=== PATIENT | female | born 1990 | race African-American/Black ===

== ENCOUNTER 2017-03-11 23:00 | Inpatient (IN) | payer MEDICAID ==
[~2017-03-11] VITALS: Ht 167.6 cm; Wt 69.1 kg
[2017-03-12 04:00] VITALS: BP 113/80
[2017-03-12] MEDS ORDERED: OLANZapine 5 MG RAPDIS TABLET PO PRN (04:15)
[2017-03-12] MEDS ORDERED: LORazepam 1 MG TABLET PO PRN (04:15)
[2017-03-12] MEDS ORDERED: ZOLPIDEM TARTRATE 10 MG TABLET PO PRN (04:15)
[2017-03-12 05:44] VITALS: BP 127/79
[2017-03-12 06:37] VITALS: BP 127/79
[2017-03-12 08:45] LABS: ADD UA MICROSCOPIC YES; APPEARANCE,URINE CLOUDY (CLEAR); GLUCOSE, URINE (UA) NEGATIVE (NEGATIVE); KETONES,URINE NEGATIVE (NEGATIVE); LEUKOCYTE ESTERASE ,URINE SMALL (NEGATIVE); OCCULT BLOOD,URINE NEGATIVE (NEGATIVE); PROTEIN,URINE NEGATIVE (NEGATIVE)
[2017-03-12 08:55] LABS: RBC,URINE 0-2 /HPF (0-2); SQUAMOUS EPITHELIAL CELL,UR Few /LPF (None Seen)
[2017-03-12] MEDS ORDERED: OLAN10TA3 PO (11:13)
[2017-03-12] MEDS: RisperiDONE 2 MG TABLET PO SCH ×2 (14:02→20:22)
[2017-03-12] MEDS: DIVALPROEX SODIUM 500 MG DR TABLET PO SCH ×2 (14:02→20:22)
[2017-03-12 16:04] VITALS: BP 115/80
[2017-03-13 06:24] VITALS: BP 121/83
[2017-03-13 08:30] VITALS: BP 135/74
[2017-03-13] MEDS: RisperiDONE 2 MG TABLET PO SCH ×2 (08:49→20:49)
[2017-03-13] MEDS: DIVALPROEX SODIUM 500 MG DR TABLET PO SCH ×2 (08:49→20:49)
[2017-03-13] MEDS: CIPROFLOXACIN HCL 500 MG TABLET PO SCH ×2 (09:49→17:03)
[2017-03-13] MEDS ORDERED: ACETAMINOPHEN 325 MG TABLET PO PRN (10:00)
[2017-03-13] MEDS ORDERED: IBUPROFEN 400 MG TABLET PO PRN (10:00)
[2017-03-13] MEDS: LORazepam 1 MG TABLET PO PRN (13:35)
[2017-03-13 16:00] VITALS: BP 130/81
[2017-03-14 08:11] LABS: BASOPHILS % (AUTO) 0.3 % (0.0-2.0); EOSINOPHILS % (AUTO) 0.2 % (1.0-6.0); HEMATOCRIT 38.6 % (36-46); HEMOGLOBIN 12.2 g/dL (12.0-16.0); LYMPHOCYTES # (AUTO) 2.2 K/uL (1.0-4.8); LYMPHOCYTES % (AUTO) 37.5 % (22.0-44.0); MEAN CORPUSCULAR HEMOGLOBIN 28.2 pg (26.0-34.0); MEAN CORPUSCULAR HGB CONC 31.7 G/dL (31.0-37.0); MEAN CORPUSCULAR VOLUME 89 fL (80-100); MONOCYTES # (AUTO) 0.7 K/uL (0.1-1.0); MONOCYTES % (AUTO) 11.7 % (2.0-9.0); NEUTROPHILS # (AUTO) 2.9 K/uL (1.8-7.7); NEUTROPHILS % (AUTO) 50.3 % (40.0-70.0); PLATELET COUNT (AUTO) 121 K/uL (150-450); RED BLOOD CELL COUNT(AUTO) 4.33 MIL/uL (4.00-5.20); RED CELL DISTRIBUTION WIDTH 12.8 % (11.5-14.5); WHITE BLOOD COUNT (AUTO) 5.8 K/uL (4.5-11.0)
[2017-03-14 08:15] LABS: HEMOGLOBIN A1C 5.8 % (4.5-6.2)
[2017-03-14] MEDS: RisperiDONE 2 MG TABLET PO SCH ×2 (08:23→20:20)
[2017-03-14] MEDS: CIPROFLOXACIN HCL 500 MG TABLET PO SCH ×2 (08:23→16:21)
[2017-03-14] MEDS: DIVALPROEX SODIUM 500 MG DR TABLET PO SCH ×2 (08:24→20:20)
[2017-03-14] MEDS: LORazepam 1 MG TABLET PO PRN ×2 (08:27→16:21)
[2017-03-14 08:47] LABS: ALANINE AMINOTRANSFERASE 17 U/L (12-78); ALBUMIN 3.5 g/dL (3.4-5.0); ANION GAP 13 mmol/L (8-16); ASPARTATE AMINOTRANSFERASE 12 U/L (15-37); BILIRUBIN,TOTAL 0.2 mg/dL (0.1-1.0); CALCIUM, TOTAL 9.1 mg/dL (8.8-10.5); CARBON DIOXIDE 25 mmol/L (22-29); CHLORIDE 100 mmol/L (98-107); CHOL/HDL RATIO 3.8 (3.9-5.7); CREATININE 0.78 mg/dL (0.60-1.30); GLOMERULAR FILTR. RATE CALC > 60 mL/min (>60); POTASSIUM 3.7 mmol/L (3.5-5.1); SODIUM SERUM 138 mmol/L (136-145); THYROID STIMULATING HORMONE 0.43 uIU/mL (0.36-3.74); TOTAL PROTEIN, SERUM 7.7 g/dL (6.4-8.2); UREA NITROGEN, BLOOD 7 mg/dL (7-18)
[2017-03-14 20:07] VITALS: BP 110/67
[2017-03-15 06:30] VITALS: BP 121/85
[2017-03-15 08:08] VITALS: BP 107/65
[2017-03-15 08:34] LABS: HEPATITIS Bs ANTIGEN SCREEN P Negative (Negative); HEPATITIS C AB SCREEN <0.1 s/co ratio (0.0-0.9)
[2017-03-15] MEDS: DIVALPROEX SODIUM 500 MG DR TABLET PO SCH (08:45)
[2017-03-15] MEDS: CIPROFLOXACIN HCL 500 MG TABLET PO SCH (08:45)
[2017-03-15] MEDS: RisperiDONE 2 MG TABLET PO SCH (08:45)
[2017-03-15] MEDS ORDERED: DIVA500T35 PO (14:05)
[2017-03-15] MEDS ORDERED: RISP2 PO (14:05)
[2017-03-15] MEDS ORDERED: CIPR-278 PO (14:07)
== END 2017-03-15 14:15 | disposition home or self-care (01) | DRG 753 ==
LOC: B2S 03-12 04:22 → B3A 03-12 14:15
DX: F31.5 Bipolar disorder, current episode depressed, severe, with psychotic features (principal); N39.0 Urinary tract infection, site not specified; F10.10 Alcohol abuse, uncomplicated; F19.10 Other psychoactive substance abuse, uncomplicated
CPT/HCPCS: 80074; 80307; 83036; 84443; 86592; 87086

== ENCOUNTER 2019-11-12 12:17 | Inpatient (IN) | payer MEDICAID, OTHER ==
[~2019-11-12] VITALS: Ht 167.6 cm; Wt 85.5 kg
[~2019-11-12 12:17] MED LIST: CIPR-278 PO; DIVA-78 PO; RISP2 PO
[2019-11-12] MEDS ORDERED: OLAN7.5T2 PO (12:54)
[2019-11-12] MEDS ORDERED: ACTIVATED CHARCOAL 50 GM/240 ML SUSPENSION PO ONE (13:00)
[2019-11-12 13:33] LABS: BASOPHILS % (AUTO) 0.8 % (0.0-2.0); EOSINOPHILS % (AUTO) 2.4 % (1.0-6.0); HEMATOCRIT 38.3 % (36-46); HEMOGLOBIN 12.4 g/dL (12.0-16.0); LYMPHOCYTES # (AUTO) 2.8 K/uL (1.0-4.8); LYMPHOCYTES % (AUTO) 41.2 % (22.0-44.0); MEAN CORPUSCULAR HEMOGLOBIN 26.9 pg (26.0-34.0); MEAN CORPUSCULAR HGB CONC 32.4 G/dL (31.0-37.0); MEAN CORPUSCULAR VOLUME 83 fL (80-100); MONOCYTES # (AUTO) 0.6 K/uL (0.1-1.0); MONOCYTES % (AUTO) 8.7 % (2.0-9.0); NEUTROPHILS # (AUTO) 3.2 K/uL (1.8-7.7); NEUTROPHILS % (AUTO) 46.9 % (40.0-70.0); PLATELET COUNT (AUTO) 395 K/uL (150-450); RED BLOOD CELL COUNT(AUTO) 4.61 MIL/uL (4.00-5.20); RED CELL DISTRIBUTION WIDTH 15.7 % (11.5-14.5)
[2019-11-12 13:39] LABS: ANION GAP 14 mmol/L (8-16); CALCIUM, TOTAL 9.6 mg/dL (8.8-10.5); CARBON DIOXIDE 26 mmol/L (22-29); CHLORIDE 98 mmol/L (98-107); CREATININE 0.88 mg/dL (0.60-1.30); GLOMERULAR FILTR. RATE CALC > 60 mL/min (>60); GLUCOSE,RANDOM 93 mg/dL (70-110); POTASSIUM 3.3 mmol/L (3.5-5.1); SALICYLATE 0.7 mg/dL (2.8-20.0); SODIUM SERUM 138 mmol/L (136-145); UREA NITROGEN, BLOOD 7 mg/dL (7-18)
[2019-11-12 13:53] LABS: ALANINE AMINOTRANSFERASE 28 U/L (12-78); ALKALINE PHOSPHATASE 105 U/L (46-116); ASPARTATE AMINOTRANSFERASE 28 U/L (15-37); BILIRUBIN,TOTAL 0.4 mg/dL (0.1-1.0)
[2019-11-12 13:54] LABS: ACETAMINOPHEN < 2 mcg/mL (10-30)
[2019-11-12 14:18] LABS: VALPROIC ACID 462 mcg/mL (50-100)
[2019-11-12 16:14] LABS: AMPHET/METH SCREEN,URINE POSITIVE (NEGATIVE); BARBITURATE SCREEN, URINE NEGATIVE (NEGATIVE); BENZODIAZEPINES SCREEN,URINE NEGATIVE (NEGATIVE); CANNABINOID SCREEN,URINE NEGATIVE (NEGATIVE); COCAINE SCREEN,URINE POSITIVE (NEGATIVE); METHADONE SCREEN, URINE NEGATIVE (NEGATIVE); OPIATE SCREEN,URINE NEGATIVE (NEGATIVE)
[2019-11-12 16:16] LABS: PHENCYCLIDINE SCREEN,URINE NEGATIVE (NEGATIVE)
[2019-11-12] MEDS ORDERED: PEG 3350/NA SULF,BICARB,CL/KCL 4000 ML SOLUTION PO ONE ×3 (17:00→20:15)
[2019-11-12] MEDS ORDERED: ONDANSETRON HCL 4 MG/2 ML VIAL IVP PRN ×2 (17:15→23:00)
[2019-11-12] MEDS ORDERED: ACETAMINOPHEN 325 MG TABLET PO PRN ×2 (17:15→23:00)
[2019-11-12] MEDS ORDERED: ONDANSETRON HCL 4 MG/2 ML VIAL IVP ONE (18:00)
[2019-11-12] MEDS ORDERED: ALBUTEROL SULFATE 2.5 MG/0.5 ML NEB SOLUTION NEB PRN (23:00)
[2019-11-12] MEDS ORDERED: IPRATROPIUM BROMIDE 0.5 MG/2.5 ML NEB SOLUTION NEB PRN (23:00)
[2019-11-12] MEDS ORDERED: POTASSIUM CHL 10 MEQ/WATER 50 ML IV PRN (23:00)
[2019-11-12] MEDS ORDERED: MAGNESIUM SULFATE 2 GM/WATER 50 ML IV PRN (23:00)
[2019-11-12] MEDS ORDERED: ZOLPIDEM TARTRATE 5 MG TABLET PO PRN (23:00)
[2019-11-12] MEDS ORDERED: HYDROCODONE/ACETAMINOPHEN 5-325 MG TABLET PO PRN (23:00)
[2019-11-12] MEDS ORDERED: MAGNESIUM SULFATE 4 GM/WATER 100 ML IV PRN (23:00)
[2019-11-12] MEDS ORDERED: MAGNESIUM HYDROXIDE SUSPENSION 30 ML UDCUP PO PRN (23:00)
[2019-11-12] MEDS ORDERED: LACTULOSE 20 GM/30 ML SOLUTION UDCUP PO ONE (23:00)
[2019-11-12] MEDS ORDERED: BISACODYL 10 MG RECTAL RECTAL SUPPOSITORY PR PRN (23:00)
[2019-11-12] MEDS ORDERED: MORPHINE SULFATE 2 MG/ML SYRINGE IVP PRN (23:00)
[2019-11-12] MEDS: DEXTROSE 5%-0.45% SODIUM CHL 1,000 ML IV SCH (23:04)
[2019-11-12 23:23] LABS: BASOPHILS % (AUTO) 0.9 % (0.0-2.0); EOSINOPHILS % (AUTO) 0.1 % (1.0-6.0); HEMATOCRIT 32.9 % (36-46); HEMOGLOBIN 10.7 g/dL (12.0-16.0); LYMPHOCYTES # (AUTO) 1.2 K/uL (1.0-4.8); LYMPHOCYTES % (AUTO) 11.5 % (22.0-44.0); MEAN CORPUSCULAR HEMOGLOBIN 27.1 pg (26.0-34.0); MEAN CORPUSCULAR HGB CONC 32.6 G/dL (31.0-37.0); MEAN CORPUSCULAR VOLUME 83 fL (80-100); MONOCYTES # (AUTO) 0.1 K/uL (0.1-1.0); MONOCYTES % (AUTO) 0.9 % (2.0-9.0); NEUTROPHILS # (AUTO) 8.7 K/uL (1.8-7.7); PLATELET COUNT (AUTO) 340 K/uL (150-450); RED BLOOD CELL COUNT(AUTO) 3.96 MIL/uL (4.00-5.20); RED CELL DISTRIBUTION WIDTH 15.9 % (11.5-14.5)
[2019-11-12 23:29] LABS: NEUTROPHILS % (AUTO) 86.6 % (40.0-70.0)
[2019-11-12 23:33] LABS: ANION GAP 8 mmol/L (8-16); CALCIUM, TOTAL 8.3 mg/dL (8.8-10.5); CARBON DIOXIDE 29 mmol/L (22-29); CHLORIDE 106 mmol/L (98-107); CREATININE 0.86 mg/dL (0.60-1.30); GLOMERULAR FILTR. RATE CALC > 60 mL/min (>60); GLUCOSE,RANDOM 105 mg/dL (70-110); POTASSIUM 3.8 mmol/L (3.5-5.1); SODIUM SERUM 143 mmol/L (136-145); UREA NITROGEN, BLOOD 3 mg/dL (7-18)
[2019-11-12 23:39] LABS: ALANINE AMINOTRANSFERASE 19 U/L (12-78); ALBUMIN 3.4 g/dL (3.4-5.0); ALKALINE PHOSPHATASE 89 U/L (46-116); ASPARTATE AMINOTRANSFERASE 20 U/L (15-37); BILIRUBIN,TOTAL 0.2 mg/dL (0.1-1.0); INR 1.1 (0.9-1.1); PROTHROMBIN TIME 10.9 SEC (9.4-11.6); TOTAL PROTEIN, SERUM 7.7 g/dL (6.4-8.2)
[2019-11-13 00:30] VITALS: BP 107/53
[2019-11-13 01:01] LABS: VALPROIC ACID 266 mcg/mL (50-100)
[2019-11-13 04:00] VITALS: BP 104/29
[2019-11-13] MEDS: HEPARIN SODIUM,PORCINE 5,000 UNITS/ML VIAL SQ SCH ×3 (04:10→16:14)
[2019-11-13 05:31] LABS: BASOPHILS % (AUTO) 0.6 % (0.0-2.0); EOSINOPHILS % (AUTO) 0.3 % (1.0-6.0); HEMATOCRIT 34.9 % (36-46); HEMOGLOBIN 11.3 g/dL (12.0-16.0); LYMPHOCYTES # (AUTO) 2.8 K/uL (1.0-4.8); LYMPHOCYTES % (AUTO) 33.3 % (22.0-44.0); MEAN CORPUSCULAR HEMOGLOBIN 27.2 pg (26.0-34.0); MEAN CORPUSCULAR HGB CONC 32.4 G/dL (31.0-37.0); MEAN CORPUSCULAR VOLUME 84 fL (80-100); MONOCYTES # (AUTO) 0.2 K/uL (0.1-1.0); MONOCYTES % (AUTO) 2.6 % (2.0-9.0); NEUTROPHILS # (AUTO) 5.2 K/uL (1.8-7.7); NEUTROPHILS % (AUTO) 63.2 % (40.0-70.0); PLATELET COUNT (AUTO) 354 K/uL (150-450); RED BLOOD CELL COUNT(AUTO) 4.16 MIL/uL (4.00-5.20); RED CELL DISTRIBUTION WIDTH 15.7 % (11.5-14.5)
[2019-11-13 06:00] LABS: ALANINE AMINOTRANSFERASE 18 U/L (12-78); ALBUMIN 3.4 g/dL (3.4-5.0); ALKALINE PHOSPHATASE 88 U/L (46-116); ANION GAP 10 mmol/L (8-16); ASPARTATE AMINOTRANSFERASE 18 U/L (15-37); BILIRUBIN,TOTAL 0.3 mg/dL (0.1-1.0); CALCIUM, TOTAL 8.5 mg/dL (8.8-10.5); CARBON DIOXIDE 28 mmol/L (22-29); CHLORIDE 106 mmol/L (98-107); CREATININE 0.81 mg/dL (0.60-1.30); GLOMERULAR FILTR. RATE CALC > 60 mL/min (>60); GLUCOSE,RANDOM 90 mg/dL (70-110); POTASSIUM 3.4 mmol/L (3.5-5.1); SODIUM SERUM 144 mmol/L (136-145); TOTAL PROTEIN, SERUM 7.8 g/dL (6.4-8.2); UREA NITROGEN, BLOOD 2 mg/dL (7-18)
[2019-11-13 06:15] LABS: VALPROIC ACID 171 mcg/mL (50-100)
[2019-11-13 08:00] VITALS: BP 117/70
[2019-11-13] MEDS: DOCUSATE SODIUM 100 MG CAPSULE PO SCH ×2 (09:00→22:11)
[2019-11-13 12:00] VITALS: BP 112/72
[2019-11-13] MEDS: LACTULOSE 20 GM/30 ML SOLUTION UDCUP PO SCH ×3 (12:28→22:11)
[2019-11-13] MEDS: DEXTROSE 5%-0.45% SODIUM CHL 1,000 ML IV SCH (12:31)
[2019-11-13 16:00] VITALS: BP 113/63
[2019-11-13] MEDS: POTASSIUM CHLORIDE 10% 40 MEQ/30 ML LIQUID UDCUP PO PRN (17:41)
[2019-11-13] MEDS: POTASSIUM CHLORIDE 20 MEQ ER TABLET PO PRN (17:56)
[2019-11-13 19:35] VITALS: BP 107/74
[2019-11-14 00:07] LABS: POTASSIUM 3.5 mmol/L (3.5-5.1)
[2019-11-14] MEDS: POTASSIUM CHLORIDE 20 MEQ ER TABLET PO PRN (00:27)
[2019-11-14] MEDS: POTASSIUM CHLORIDE 10% 40 MEQ/30 ML LIQUID UDCUP PO PRN (00:27)
[2019-11-14] MEDS: HEPARIN SODIUM,PORCINE 5,000 UNITS/ML VIAL SQ SCH ×3 (00:43→16:00)
[2019-11-14] MEDS: DEXTROSE 5%-0.45% SODIUM CHL 1,000 ML IV SCH ×2 (01:31→16:33)
[2019-11-14 04:00] VITALS: BP 121/87
[2019-11-14] MEDS: LACTULOSE 20 GM/30 ML SOLUTION UDCUP PO SCH ×3 (04:56→22:02)
[2019-11-14 07:42] VITALS: BP 119/75
[2019-11-14] MEDS: DOCUSATE SODIUM 100 MG CAPSULE PO SCH ×2 (08:11→22:02)
[2019-11-14 09:21] LABS: BASOPHILS % (AUTO) 0.6 % (0.0-2.0); EOSINOPHILS % (AUTO) 0.7 % (1.0-6.0); HEMATOCRIT 31.8 % (36-46); HEMOGLOBIN 10.5 g/dL (12.0-16.0); LYMPHOCYTES # (AUTO) 2.4 K/uL (1.0-4.8); LYMPHOCYTES % (AUTO) 46.7 % (22.0-44.0); MEAN CORPUSCULAR HEMOGLOBIN 27.8 pg (26.0-34.0); MEAN CORPUSCULAR HGB CONC 33.2 G/dL (31.0-37.0); MEAN CORPUSCULAR VOLUME 84 fL (80-100); MONOCYTES # (AUTO) 0.5 K/uL (0.1-1.0); MONOCYTES % (AUTO) 9.3 % (2.0-9.0); NEUTROPHILS # (AUTO) 2.2 K/uL (1.8-7.7); NEUTROPHILS % (AUTO) 42.7 % (40.0-70.0); PLATELET COUNT (AUTO) 284 K/uL (150-450); RED BLOOD CELL COUNT(AUTO) 3.79 MIL/uL (4.00-5.20); RED CELL DISTRIBUTION WIDTH 15.7 % (11.5-14.5)
[2019-11-14 09:36] LABS: ALANINE AMINOTRANSFERASE 16 U/L (12-78); ALKALINE PHOSPHATASE 78 U/L (46-116); ANION GAP 8 mmol/L (8-16); ASPARTATE AMINOTRANSFERASE 16 U/L (15-37); BILIRUBIN,TOTAL 0.3 mg/dL (0.1-1.0); CALCIUM, TOTAL 8.9 mg/dL (8.8-10.5); CARBON DIOXIDE 26 mmol/L (22-29); CHLORIDE 105 mmol/L (98-107); GLUCOSE,RANDOM 108 mg/dL (70-110); SODIUM SERUM 139 mmol/L (136-145); UREA NITROGEN, BLOOD 1 mg/dL (7-18); VALPROIC ACID 64 mcg/mL (50-100)
[2019-11-14 09:48] LABS: CREATININE 0.86 mg/dL (0.60-1.30); GLOMERULAR FILTR. RATE CALC > 60 mL/min (>60)
[2019-11-14 11:58] VITALS: BP 105/55
[2019-11-14 16:13] VITALS: BP 105/57
[2019-11-14 19:37] VITALS: BP 110/61
[2019-11-15] MEDS: HEPARIN SODIUM,PORCINE 5,000 UNITS/ML VIAL SQ SCH ×3 (00:24→16:00)
[2019-11-15 00:52] VITALS: BP 120/69
[2019-11-15 05:55] VITALS: BP 106/60
[2019-11-15] MEDS: DEXTROSE 5%-0.45% SODIUM CHL 1,000 ML IV SCH (06:12)
[2019-11-15] MEDS: LACTULOSE 20 GM/30 ML SOLUTION UDCUP PO SCH (06:12)
[2019-11-15 07:17] LABS: EOSINOPHILS % (AUTO) 1.7 % (1.0-6.0); HEMATOCRIT 31.3 % (36-46); HEMOGLOBIN 10.5 g/dL (12.0-16.0); LYMPHOCYTES # (AUTO) 2.8 K/uL (1.0-4.8); LYMPHOCYTES % (AUTO) 47.7 % (22.0-44.0); MEAN CORPUSCULAR HEMOGLOBIN 28.2 pg (26.0-34.0); MEAN CORPUSCULAR HGB CONC 33.6 G/dL (31.0-37.0); MEAN CORPUSCULAR VOLUME 84 fL (80-100); MONOCYTES # (AUTO) 0.5 K/uL (0.1-1.0); NEUTROPHILS # (AUTO) 2.4 K/uL (1.8-7.7); NEUTROPHILS % (AUTO) 41.6 % (40.0-70.0); PLATELET COUNT (AUTO) 271 K/uL (150-450); RED BLOOD CELL COUNT(AUTO) 3.73 MIL/uL (4.00-5.20); RED CELL DISTRIBUTION WIDTH 15.4 % (11.5-14.5)
[2019-11-15 07:45] LABS: ALANINE AMINOTRANSFERASE 13 U/L (12-78); ALBUMIN 2.8 g/dL (3.4-5.0); ALKALINE PHOSPHATASE 78 U/L (46-116); ANION GAP 9 mmol/L (8-16); ASPARTATE AMINOTRANSFERASE 11 U/L (15-37); BILIRUBIN,TOTAL 0.1 mg/dL (0.1-1.0); CALCIUM, TOTAL 8.7 mg/dL (8.8-10.5); CARBON DIOXIDE 25 mmol/L (22-29); CHLORIDE 104 mmol/L (98-107); CREATININE 0.71 mg/dL (0.60-1.30); GLOMERULAR FILTR. RATE CALC > 60 mL/min (>60); GLUCOSE,RANDOM 103 mg/dL (70-110); POTASSIUM 3.6 mmol/L (3.5-5.1); SODIUM SERUM 138 mmol/L (136-145); TOTAL PROTEIN, SERUM 6.4 g/dL (6.4-8.2); UREA NITROGEN, BLOOD 1 mg/dL (7-18); VALPROIC ACID 30 mcg/mL (50-100)
[2019-11-15 08:00] VITALS: BP 109/68
[2019-11-15] MEDS: DOCUSATE SODIUM 100 MG CAPSULE PO SCH ×2 (08:12→21:00)
[2019-11-15 12:12] VITALS: BP 108/72
[2019-11-15 16:12] VITALS: BP 109/70
[2019-11-15 19:36] VITALS: BP 118/68
[2019-11-16 00:03] VITALS: BP 125/71
[2019-11-16 05:12] VITALS: BP 112/61
[2019-11-16 06:55] LABS: BASOPHILS % (AUTO) 0.5 % (0.0-2.0); EOSINOPHILS % (AUTO) 2.7 % (1.0-6.0); HEMATOCRIT 32.9 % (36-46); HEMOGLOBIN 10.8 g/dL (12.0-16.0); LYMPHOCYTES # (AUTO) 2.6 K/uL (1.0-4.8); LYMPHOCYTES % (AUTO) 45.7 % (22.0-44.0); MEAN CORPUSCULAR HEMOGLOBIN 27.4 pg (26.0-34.0); MEAN CORPUSCULAR HGB CONC 32.7 G/dL (31.0-37.0); MEAN CORPUSCULAR VOLUME 84 fL (80-100); MONOCYTES # (AUTO) 0.5 K/uL (0.1-1.0); MONOCYTES % (AUTO) 8.5 % (2.0-9.0); NEUTROPHILS # (AUTO) 2.4 K/uL (1.8-7.7); NEUTROPHILS % (AUTO) 42.6 % (40.0-70.0); PLATELET COUNT (AUTO) 280 K/uL (150-450); RED BLOOD CELL COUNT(AUTO) 3.93 MIL/uL (4.00-5.20); RED CELL DISTRIBUTION WIDTH 15.5 % (11.5-14.5)
[2019-11-16 07:17] LABS: ALANINE AMINOTRANSFERASE 11 U/L (12-78); ALBUMIN 2.9 g/dL (3.4-5.0); ALKALINE PHOSPHATASE 79 U/L (46-116); ANION GAP 8 mmol/L (8-16); ASPARTATE AMINOTRANSFERASE 11 U/L (15-37); BILIRUBIN,TOTAL 0.1 mg/dL (0.1-1.0); CARBON DIOXIDE 26 mmol/L (22-29); CHLORIDE 103 mmol/L (98-107); CREATININE 0.72 mg/dL (0.60-1.30); GLOMERULAR FILTR. RATE CALC > 60 mL/min (>60); GLUCOSE,RANDOM 86 mg/dL (70-110); POTASSIUM 4.1 mmol/L (3.5-5.1); SODIUM SERUM 137 mmol/L (136-145); TOTAL PROTEIN, SERUM 6.6 g/dL (6.4-8.2); UREA NITROGEN, BLOOD 2 mg/dL (7-18); VALPROIC ACID 17 mcg/mL (50-100)
[2019-11-16 08:52] VITALS: BP 105/58
[2019-11-16] MEDS: HEPARIN SODIUM,PORCINE 5,000 UNITS/ML VIAL SQ SCH ×2 (09:35)
[2019-11-16] MEDS: DOCUSATE SODIUM 100 MG CAPSULE PO SCH (09:36)
[2019-11-16 12:00] VITALS: BP 116/67
== END 2019-11-16 11:55 | DRG 817 ==
LOC: EMS 12:23 → ICU 23:00 → 5N 11-13 18:55
PROVIDERS: ADMIT Hospitalist; ATTEND Hospitalist
DX: T42.6X2A Poisoning by other antiepileptic and sedative-hypnotic drugs, intentional self-harm, initial encounter (principal); J18.9 Pneumonia, unspecified organism; R45.851 Suicidal ideations; F31.5 Bipolar disorder, current episode depressed, severe, with psychotic features; R45.850 Homicidal ideations; D64.9 Anemia, unspecified; S61.512A Laceration without foreign body of left wrist, initial encounter; Z79.899 Other long term (current) drug therapy; X58.XXXA Exposure to other specified factors, initial encounter; Y93.89 Activity, other specified; Z91.5 Personal history of self-harm; Y92.89 Other specified places as the place of occurrence of the external cause; Y99.8 Other external cause status
CPT/HCPCS: 83735; 84132; 87081; 93005; 99291; G0378; G0480; G0481; J1644; J2405

== ENCOUNTER 2019-11-16 12:00 | Inpatient (IN) | payer MEDICAID ==
[~2019-11-16] VITALS: Ht 167.6 cm; Wt 85.5 kg
[2019-11-16 12:00] VITALS: BP 116/67
[~2019-11-16 12:00] MED LIST changes: -CIPR-278 PO; +OLAN7.5T2 PO
[2019-11-16] MEDS ORDERED: HALOPERIDOL 5 MG TABLET PO PRN (13:45)
[2019-11-16] MEDS ORDERED: INFLUENZA VIRUS VACCINE QVS 2019-20 (3YR+)/PF 60 MCG/0.5 ML SYRINGE IM ONE (14:45)
[2019-11-16 16:02] VITALS: BP 100/65
[2019-11-16 16:05] VITALS: BP 100/65
[2019-11-16] MEDS ORDERED: NICOTINE 14 MG/24 HOUR PATCH TD PRN (19:00)
[2019-11-16] MEDS ORDERED: ACETAMINOPHEN 325 MG TABLET PO PRN (19:00)
[2019-11-16] MEDS ORDERED: IBUPROFEN 400 MG TABLET PO PRN (19:00)
[2019-11-16] MEDS ORDERED: PETROLATUM,WHITE 28 GM JELLY TP PRN (19:00)
[2019-11-16] MEDS ORDERED: LOPERAMIDE HCL 2 MG CAPSULE PO PRN (19:00)
[2019-11-16] MEDS ORDERED: MAG HYDROX/AL HYDROX/SIMETH ES 30 ML SUSPENSION UDCUP PO PRN (19:00)
[2019-11-16] MEDS ORDERED: CloNIDine HCL 0.1 MG TABLET PO PRN (19:00)
[2019-11-16] MEDS ORDERED: DOCUSATE SODIUM 100 MG CAPSULE PO PRN (19:00)
[2019-11-16] MEDS ORDERED: MAGNESIUM HYDROXIDE SUSPENSION 30 ML UDCUP PO PRN (19:00)
[2019-11-16] MEDS ORDERED: ONDANSETRON HCL 4 MG TABLET PO PRN (19:00)
[2019-11-16] MEDS ORDERED: GuaiFENesin/D-METHORPHAN [SUGAR-FREE] 200-20MG/10 ML SYRUP UDCUP PO PRN (19:00)
[2019-11-16] MEDS ORDERED: ALBUTEROL SULFATE HFA 90 MCG/PUFF 8 GM INHALER IH PRN (19:00)
[2019-11-16] MEDS: SERTRALINE HCL 50 MG TABLET PO SCH (20:45)
[2019-11-16 21:11] VITALS: BP 100/65
[2019-11-17] MEDS: ARIPiprazole 10 MG TABLET PO SCH (09:28)
[2019-11-17 12:00] VITALS: BP 111/61
[2019-11-17 16:59] VITALS: BP 107/65
[2019-11-17] MEDS: SERTRALINE HCL 50 MG TABLET PO SCH (20:31)
[2019-11-18 08:49] VITALS: BP 120/75
[2019-11-18] MEDS: ARIPiprazole 10 MG TABLET PO SCH (09:19)
[2019-11-18 17:35] VITALS: BP 121/77
[2019-11-18] MEDS: SERTRALINE HCL 50 MG TABLET PO SCH (20:41)
[2019-11-19] MEDS: ARIPiprazole 10 MG TABLET PO SCH (08:46)
[2019-11-19 09:58] VITALS: BP 107/73
[2019-11-19] MEDS: SERTRALINE HCL 50 MG TABLET PO SCH (20:02)
[2019-11-19 22:07] VITALS: BP 133/72
[2019-11-20 08:59] VITALS: BP 122/87
[2019-11-20] MEDS: ARIPiprazole 10 MG TABLET PO SCH (09:09)
[2019-11-20 16:00] VITALS: BP 108/75
[2019-11-20] MEDS: LORazepam 2 MG TABLET PO PRN (19:35)
[2019-11-20] MEDS: SERTRALINE HCL 50 MG TABLET PO SCH (21:26)
[2019-11-21 05:42] VITALS: BP 122/71
[2019-11-21] MEDS: ARIPiprazole 10 MG TABLET PO SCH (09:17)
[2019-11-21 10:11] VITALS: BP 107/65
[2019-11-21 16:56] VITALS: BP 109/65
[2019-11-21] MEDS: SERTRALINE HCL 50 MG TABLET PO SCH (20:33)
[2019-11-21] MEDS: ZOLPIDEM TARTRATE 10 MG TABLET PO PRN (21:15)
[2019-11-21] MEDS: LORazepam 2 MG TABLET PO PRN (22:16)
[2019-11-22] MEDS: LORazepam 2 MG TABLET PO PRN (06:32)
[2019-11-22 08:51] VITALS: BP 133/72
[2019-11-22] MEDS: ARIPiprazole 10 MG TABLET PO SCH (09:14)
[2019-11-22 19:49] VITALS: BP 124/68
[2019-11-22] MEDS: SERTRALINE HCL 50 MG TABLET PO SCH (20:50)
[2019-11-23] MEDS: ZOLPIDEM TARTRATE 10 MG TABLET PO PRN ×2 (00:32→20:52)
[2019-11-23] MEDS: LORazepam 2 MG TABLET PO PRN ×2 (01:48→16:33)
[2019-11-23 02:55] VITALS: BP 123/77
[2019-11-23] MEDS: ARIPiprazole 10 MG TABLET PO SCH (08:39)
[2019-11-23 08:46] VITALS: BP 111/68
[2019-11-23 17:00] VITALS: BP 116/77
[2019-11-23] MEDS: SERTRALINE HCL 50 MG TABLET PO SCH (20:24)
[2019-11-24 08:00] VITALS: BP 113/69
[2019-11-24] MEDS ORDERED: ARIP10TA8 PO (08:38)
[2019-11-24] MEDS ORDERED: SERT50TA12 PO (08:40)
[2019-11-24] MEDS: ARIPiprazole 10 MG TABLET PO SCH ×2 (09:00→09:34)
== END 2019-11-24 09:10 | disposition home or self-care (01) | DRG 885 ==
LOC: 3EI 12:00
PROVIDERS: ADMIT Psychiatry & Neurology Psychiatry; ATTEND Psychiatry & Neurology Psychiatry
DX: F31.5 Bipolar disorder, current episode depressed, severe, with psychotic features (principal); G93.40 Encephalopathy, unspecified; R45.851 Suicidal ideations; F19.10 Other psychoactive substance abuse, uncomplicated; F41.9 Anxiety disorder, unspecified; Z91.5 Personal history of self-harm
CPT/HCPCS: 84443; 87491; 87591

== ENCOUNTER 2020-03-29 13:15 | Inpatient (IN) | payer MEDICAID ==
[2020-03-29] VITALS (7 sets, daily range): BP systolic 103–129; BP diastolic 62–68
[~2020-03-29] VITALS: Ht 167.6 cm; Wt 84.4 kg
[~2020-03-29 13:15] MED LIST changes: +ARIP10TA8 PO; -DIVA-78 PO; -OLAN7.5T2 PO; -RISP2 PO; +SERT50TA12 PO
[2020-03-29] MEDS ORDERED: MAGNESIUM HYDROXIDE SUSPENSION 30 ML UDCUP PO PRN (14:15)
[2020-03-29] MEDS ORDERED: ACETAMINOPHEN 325 MG TABLET PO PRN (14:15)
[2020-03-29] MEDS ORDERED: MAG HYDROX/AL HYDROX/SIMETH ES 30 ML SUSPENSION UDCUP PO PRN (14:15)
[2020-03-29] MEDS ORDERED: HydrOXYzine PAMOATE 50 MG CAPSULE PO PRN (14:15)
[2020-03-29] MEDS ORDERED: PROMETHAZINE HCL 25 MG TABLET PO PRN (14:15)
[2020-03-29] MEDS ORDERED: GuaiFENesin/D-METHORPHAN [SUGAR-FREE] 200-20MG/10 ML SYRUP UDCUP PO PRN (14:15)
[2020-03-29] MEDS ORDERED: TUBERCULIN, PURIFIED PROTEIN DERIVATIVE 5 TU/0.1 ML SYRINGE ID ONE (14:15)
[2020-03-29] MEDS ORDERED: LOPERAMIDE HCL 2 MG CAPSULE PO PRN (14:15)
[2020-03-29] MEDS ORDERED: ZOLPIDEM TARTRATE 10 MG TABLET PO PRN (14:15)
[2020-03-29] MEDS ORDERED: LORazepam 2 MG TABLET PO PRN ×3 (14:15→19:30)
[2020-03-29] MEDS ORDERED: OLANZapine 5 MG RAPDIS TABLET PO PRN (14:15)
[2020-03-29] MEDS: THIAMINE 100 MG TABLET PO SCH (21:03)
[2020-03-30] VITALS (9 sets, daily range): BP systolic 101–139; BP diastolic 57–81
[2020-03-30] MEDS ORDERED: LORazepam 2 MG TABLET PO PRN (07:00)
[2020-03-30 08:10] LABS: BASOPHILS % (AUTO) 0.3 % (0.0-2.0); EOSINOPHILS % (AUTO) 2.7 % (1.0-6.0); HEMATOCRIT 32.7 % (36-46); HEMOGLOBIN 10.5 g/dL (12.0-16.0); LYMPHOCYTES # (AUTO) 1.9 K/uL (1.0-4.8); LYMPHOCYTES % (AUTO) 46.3 % (22.0-44.0); MEAN CORPUSCULAR HEMOGLOBIN 25.8 pg (26.0-34.0); MEAN CORPUSCULAR VOLUME 81 fL (80-100); MONOCYTES # (AUTO) 0.4 K/uL (0.1-1.0); MONOCYTES % (AUTO) 9.8 % (2.0-9.0); NEUTROPHILS # (AUTO) 1.7 K/uL (1.8-7.7); NEUTROPHILS % (AUTO) 40.9 % (40.0-70.0); PLATELET COUNT (AUTO) 279 K/uL (150-450); RED BLOOD CELL COUNT(AUTO) 4.05 MIL/uL (4.00-5.20); RED CELL DISTRIBUTION WIDTH 15.9 % (11.5-14.5)
[2020-03-30 08:27] LABS: HEMOGLOBIN A1C 5.5 % (3.8-5.6)
[2020-03-30 08:29] LABS: ALANINE AMINOTRANSFERASE 17 U/L (12-78); ALBUMIN 3.3 g/dL (3.4-5.0); ALKALINE PHOSPHATASE 82 U/L (46-116); ANION GAP 9 mmol/L (8-16); ASPARTATE AMINOTRANSFERASE 14 U/L (15-37); BILIRUBIN,TOTAL 0.4 mg/dL (0.1-1.0); CALCIUM, TOTAL 8.8 mg/dL (8.8-10.5); CARBON DIOXIDE 27 mmol/L (22-29); CHLORIDE 103 mmol/L (98-107); CHOL/HDL RATIO 3.5 (3.9-5.7); CHOLESTEROL 195 mg/dL (131-200); CREATININE 0.77 mg/dL (0.60-1.30); FREE T4 (FREE THYROXINE) 0.79 ng/dL (0.76-1.46); GLOMERULAR FILTR. RATE CALC > 60 mL/min (>60); GLUCOSE,RANDOM 84 mg/dL (70-110); HCG,QUANTITATIVE < 1 mIU/mL (0-6); HDL CHOLESTEROL 56 mg/dL (40-60); LDL CHOL (CALC.) 119 mg/dL (0-130); POTASSIUM 3.9 mmol/L (3.5-5.1); SODIUM SERUM 139 mmol/L (136-145); TOTAL PROTEIN, SERUM 7.1 g/dL (6.4-8.2); TRIGLYCERIDES 102 mg/dL (15-150); UREA NITROGEN, BLOOD 7 mg/dL (7-18)
[2020-03-30] MEDS ORDERED: ARIPiprazole 10 MG TABLET PO SCH (09:00)
[2020-03-30] MEDS: THIAMINE 100 MG TABLET PO SCH ×2 (09:03→16:46)
[2020-03-30] MEDS: MULTIVITAMINS WITH MINERALS, THERAPEUTIC TABLET PO SCH (09:03)
[2020-03-30] MEDS: SERTRALINE HCL 50 MG TABLET PO SCH (09:03)
[2020-03-30] MEDS: LORazepam 2 MG TABLET PO SCH ×4 (09:03→20:39)
[2020-03-30] MEDS: FOLIC ACID 1 MG TABLET PO SCH (09:03)
[2020-03-30] MEDS: NALTREXONE HCL 50 MG TABLET PO SCH (09:04)
[2020-03-30] MEDS ORDERED: OLANZapine 10 MG RAPDIS TABLET PO SCH (21:00)
[2020-03-31 02:27] VITALS: BP 121/82
[2020-03-31] MEDS: MULTIVITAMINS WITH MINERALS, THERAPEUTIC TABLET PO SCH (08:52)
[2020-03-31] MEDS: NALTREXONE HCL 50 MG TABLET PO SCH (08:52)
[2020-03-31] MEDS: THIAMINE 100 MG TABLET PO SCH ×2 (08:52→16:27)
[2020-03-31] MEDS: FOLIC ACID 1 MG TABLET PO SCH (08:52)
[2020-03-31] MEDS: LORazepam 2 MG TABLET PO SCH ×4 (08:52→20:37)
[2020-03-31] MEDS: SERTRALINE HCL 50 MG TABLET PO SCH (08:52)
[2020-03-31 09:00] VITALS: BP 121/82
[2020-03-31 09:01] VITALS: BP 120/60
[2020-03-31 14:34] VITALS: BP 112/75
[2020-03-31 16:00] VITALS: BP 125/89
[2020-03-31 17:28] VITALS: BP 125/89
[2020-03-31] MEDS ORDERED: OLANZapine 5 MG RAPDIS TABLET PO SCH (21:00)
[2020-04-01] VITALS: BP 122/74
[2020-04-01] MEDS ORDERED: LORazepam 1 MG TABLET PO PRN (07:00)
[2020-04-01 08:02] VITALS: BP 110/76
[2020-04-01] MEDS: LORazepam 1 MG TABLET PO SCH ×2 (08:30→12:29)
[2020-04-01] MEDS: NALTREXONE HCL 50 MG TABLET PO SCH (08:30)
[2020-04-01] MEDS: FOLIC ACID 1 MG TABLET PO SCH (08:30)
[2020-04-01] MEDS: SERTRALINE HCL 50 MG TABLET PO SCH (08:31)
[2020-04-01] MEDS: THIAMINE 100 MG TABLET PO SCH (08:31)
[2020-04-01] MEDS: MULTIVITAMINS WITH MINERALS, THERAPEUTIC TABLET PO SCH (08:31)
[2020-04-01 08:39] VITALS: BP 110/76
[2020-04-01] MEDS ORDERED: SERT50TA12 PO (13:41)
[2020-04-01] MEDS ORDERED: OLAN5TAB30 PO (13:41)
[2020-04-01] MEDS ORDERED: NALT50TA PO (13:41)
[2020-04-02] MEDS ORDERED: LORazepam 1 MG TABLET PO PRN (07:00)
== END 2020-04-01 18:24 | disposition home or self-care (01) | DRG 750 ==
LOC: B2S 14:02
PROVIDERS: ADMIT Psychiatry & Neurology Psychiatry; ATTEND Psychiatry & Neurology Psychiatry
DX: F25.0 Schizoaffective disorder, bipolar type (principal); Z59.0 Homelessness; D64.9 Anemia, unspecified; F12.90 Cannabis use, unspecified, uncomplicated; F14.90 Cocaine use, unspecified, uncomplicated; F17.210 Nicotine dependence, cigarettes, uncomplicated; Z91.19 Patient's noncompliance with other medical treatment and regimen; Z91.14 Patient's other noncompliance with medication regimen; Z91.5 Personal history of self-harm; F32.9 Major depressive disorder, single episode, unspecified
CPT/HCPCS: 83036; 84439; 84443; 86592

== ENCOUNTER 2020-03-29 16:18 | Emergency (ER) | payer MEDICAID, OTHER ==
[~2020-03-29] VITALS: Ht 167.6 cm; Wt 84.5 kg
[2020-03-29] MEDS ORDERED: IBUPROFEN 600 MG TABLET PO ONE (16:45)
[2020-03-29 17:04] LABS: BASOPHILS % (AUTO) 0.4 % (0.0-2.0); EOSINOPHILS % (AUTO) 1.6 % (1.0-6.0); HEMATOCRIT 33.9 % (36-46); HEMOGLOBIN 10.9 g/dL (12.0-16.0); LYMPHOCYTES # (AUTO) 2.2 K/uL (1.0-4.8); LYMPHOCYTES % (AUTO) 42.3 % (22.0-44.0); MEAN CORPUSCULAR HEMOGLOBIN 25.9 pg (26.0-34.0); MEAN CORPUSCULAR HGB CONC 32.2 G/dL (31.0-37.0); MEAN CORPUSCULAR VOLUME 81 fL (80-100); MONOCYTES # (AUTO) 0.4 K/uL (0.1-1.0); MONOCYTES % (AUTO) 7.7 % (2.0-9.0); NEUTROPHILS # (AUTO) 2.5 K/uL (1.8-7.7); PLATELET COUNT (AUTO) 294 K/uL (150-450); RED BLOOD CELL COUNT(AUTO) 4.22 MIL/uL (4.00-5.20); RED CELL DISTRIBUTION WIDTH 16.2 % (11.5-14.5)
[2020-03-29 17:14] LABS: ANION GAP 9 mmol/L (8-16); CALCIUM, TOTAL 9.5 mg/dL (8.8-10.5); CARBON DIOXIDE 27 mmol/L (22-29); CHLORIDE 102 mmol/L (98-107); CREATININE 0.78 mg/dL (0.60-1.30); GLOMERULAR FILTR. RATE CALC > 60 mL/min (>60); GLUCOSE,RANDOM 104 mg/dL (70-110); POTASSIUM 4.1 mmol/L (3.5-5.1); SODIUM SERUM 138 mmol/L (136-145); UREA NITROGEN, BLOOD 8 mg/dL (7-18)
[2020-03-29 17:20] LABS: ALANINE AMINOTRANSFERASE 19 U/L (12-78); ALBUMIN 3.9 g/dL (3.4-5.0); ALKALINE PHOSPHATASE 100 U/L (46-116); ASPARTATE AMINOTRANSFERASE 18 U/L (15-37); BILIRUBIN,TOTAL 0.2 mg/dL (0.1-1.0); TOTAL PROTEIN, SERUM 7.8 g/dL (6.4-8.2)
[2020-03-29 18:36] VITALS: BP 109/65
== END 2020-03-29 20:36 | disposition other institution (70) ==
LOC: EMS 16:18
DX: S09.90XA Unspecified injury of head, initial encounter (principal); F20.9 Schizophrenia, unspecified; H11.32 Conjunctival hemorrhage, left eye; F31.9 Bipolar disorder, unspecified; F14.90 Cocaine use, unspecified, uncomplicated; W50.0XXA Accidental hit or strike by another person, initial encounter; Y93.89 Activity, other specified; Y92.89 Other specified places as the place of occurrence of the external cause; Y99.8 Other external cause status
CPT/HCPCS: 36415; 70450; 80053; 85025; 99285; G0480

== ENCOUNTER 2020-11-01 15:14 | Inpatient (IN) | payer MEDICAID, OTHER ==
[~2020-11-01] VITALS: Ht 167.6 cm; Wt 79.9 kg
[~2020-11-01 15:14] MED LIST changes: -ARIP10TA8 PO; +NALT50TA PO; +OLAN5TAB30 PO
[2020-11-01] MEDS ORDERED: LORazepam 2 MG TABLET PO ONE (20:45)
[2020-11-01] MEDS ORDERED: OLANZapine 5 MG TABLET PO ONE (21:30)
[2020-11-01] MEDS ORDERED: ACETAMINOPHEN 325 MG TABLET PO PRN (22:00)
[2020-11-01] MEDS ORDERED: MAGNESIUM HYDROXIDE SUSPENSION 30 ML UDCUP PO PRN (22:00)
[2020-11-01] MEDS ORDERED: PROMETHAZINE HCL 25 MG TABLET PO PRN (22:00)
[2020-11-01] MEDS ORDERED: ZOLPIDEM TARTRATE 10 MG TABLET PO PRN (22:00)
[2020-11-01] MEDS ORDERED: TUBERCULIN, PURIFIED PROTEIN DERIVATIVE 5 TU/0.1 ML SYRINGE ID ONE (22:00)
[2020-11-01] MEDS ORDERED: GuaiFENesin/D-METHORPHAN [SUGAR-FREE] 200-20MG/10 ML SYRUP UDCUP PO PRN (22:00)
[2020-11-01] MEDS ORDERED: OLANZapine 5 MG RAPDIS TABLET PO PRN (22:00)
[2020-11-01] MEDS ORDERED: MAG HYDROX/AL HYDROX/SIMETH ES 30 ML SUSPENSION UDCUP PO PRN (22:00)
[2020-11-01] MEDS ORDERED: HydrOXYzine PAMOATE 50 MG CAPSULE PO PRN (22:00)
[2020-11-01] MEDS ORDERED: LOPERAMIDE HCL 2 MG CAPSULE PO PRN (22:00)
[2020-11-01 22:36] LABS: BASOPHILS % (AUTO) 0.7 % (0.0-2.0); MONOCYTES # (AUTO) 0.7 K/uL (0.1-1.0)
[2020-11-01 22:42] LABS: EOSINOPHILS % (AUTO) 0.4 % (1.0-6.0); HEMATOCRIT 40.5 % (36-46); HEMOGLOBIN 13.1 g/dL (12.0-16.0); LYMPHOCYTES # (AUTO) 1.5 K/uL (1.0-4.8); LYMPHOCYTES % (AUTO) 26.9 % (22.0-44.0); MEAN CORPUSCULAR HEMOGLOBIN 27.6 pg (26.0-34.0); MEAN CORPUSCULAR HGB CONC 32.4 G/dL (31.0-37.0); MEAN CORPUSCULAR VOLUME 85 fL (80-100); MONOCYTES % (AUTO) 12.5 % (2.0-9.0); NEUTROPHILS # (AUTO) 3.4 K/uL (1.8-7.7); NEUTROPHILS % (AUTO) 59.5 % (40.0-70.0); RED BLOOD CELL COUNT(AUTO) 4.74 MIL/uL (4.00-5.20); RED CELL DISTRIBUTION WIDTH 16.6 % (11.5-14.5)
[2020-11-01 23:00] LABS: ANION GAP 11 mmol/L (8-16); CALCIUM, TOTAL 9.8 mg/dL (8.8-10.5); CARBON DIOXIDE 28 mmol/L (22-29); CHLORIDE 98 mmol/L (98-107); CREATININE 0.68 mg/dL (0.60-1.30); GLOMERULAR FILTR. RATE CALC > 60 mL/min (>60); GLUCOSE,RANDOM 128 mg/dL (70-110); POTASSIUM 3.4 mmol/L (3.5-5.1); SODIUM SERUM 137 mmol/L (136-145); UREA NITROGEN, BLOOD 7 mg/dL (7-18)
[2020-11-01 23:10] LABS: COVID AG,FIA SOURCE NASOPHARYNGEAL
[2020-11-01 23:19] LABS: ALANINE AMINOTRANSFERASE 15 U/L (12-78); ALKALINE PHOSPHATASE 100 U/L (46-116); ASPARTATE AMINOTRANSFERASE 14 U/L (15-37); BILIRUBIN,TOTAL 0.4 mg/dL (0.1-1.0); HCG,QUANTITATIVE < 1 mIU/mL (0-6); PLATELET COUNT (AUTO) 322 K/uL (150-450)
[2020-11-02 00:45] VITALS: BP 145/81
[2020-11-02] MEDS ORDERED: INFLUENZA VIRUS VACCINE QVS 2020-21 (6MO+)/PF 60 MCG/0.5 ML SYRINGE IM ONE (01:15)
[2020-11-02 06:51] VITALS: BP 139/74
[2020-11-02] MEDS: LORazepam 2 MG TABLET PO PRN ×2 (06:51→16:49)
[2020-11-02 08:23] LABS: APPEARANCE,URINE CLEAR (CLEAR); GLUCOSE, URINE (UA) NEGATIVE (NEGATIVE); KETONES,URINE 40 mg/dL (NEGATIVE); LEUKOCYTE ESTERASE ,URINE NEGATIVE (NEGATIVE); NITRATE,URINE NEGATIVE (NEGATIVE); OCCULT BLOOD,URINE NEGATIVE (NEGATIVE); PROTEIN,URINE NEGATIVE (NEGATIVE); UROBILINOGEN,URINE 0.2 mg/dL (<=1.0)
[2020-11-02 08:24] LABS: BILIRUBIN,URINE PRELIM. POSITIVE (NEGATIVE)
[2020-11-02 08:29] LABS: AMPHET/METH SCREEN,URINE NEGATIVE (NEGATIVE); BARBITURATE SCREEN, URINE NEGATIVE (NEGATIVE); BENZODIAZEPINES SCREEN,URINE NEGATIVE (NEGATIVE); CANNABINOID SCREEN,URINE NEGATIVE (NEGATIVE); COCAINE SCREEN,URINE NEGATIVE (NEGATIVE); METHADONE SCREEN, URINE NEGATIVE (NEGATIVE); OPIATE SCREEN,URINE NEGATIVE (NEGATIVE)
[2020-11-02 08:33] LABS: PHENCYCLIDINE SCREEN,URINE NEGATIVE (NEGATIVE)
[2020-11-02 08:41] VITALS: BP 105/84
[2020-11-02] MEDS: MULTIVITAMINS WITH MINERALS, THERAPEUTIC TABLET PO SCH (10:45)
[2020-11-02] MEDS: NALTREXONE HCL 50 MG TABLET PO SCH (10:45)
[2020-11-02] MEDS: SERTRALINE HCL 50 MG TABLET PO SCH (10:46)
[2020-11-02] MEDS: THIAMINE 100 MG TABLET PO SCH ×2 (10:46→17:11)
[2020-11-02] MEDS: FOLIC ACID 1 MG TABLET PO SCH (10:46)
[2020-11-02] MEDS: OMEGA-3/DHA/EPA/FISH OIL 1,000 MG CAPSULE PO SCH (10:48)
[2020-11-02] MEDS ORDERED: POTASSIUM CHLORIDE 20 MEQ ER TABLET PO ONE (11:30)
[2020-11-02 17:18] VITALS: BP 123/93
[2020-11-02] MEDS: MELATONIN 5 MG TABLET PO SCH ×2 (21:00→22:24)
[2020-11-02] MEDS: OLANZapine 5 MG RAPDIS TABLET PO SCH ×2 (21:00→22:24)
[2020-11-03] MEDS: LORazepam 2 MG TABLET PO PRN ×2 (02:44→16:18)
[2020-11-03 02:45] VITALS: BP 135/93
[2020-11-03] MEDS: NALTREXONE HCL 50 MG TABLET PO SCH (08:28)
[2020-11-03] MEDS: FOLIC ACID 1 MG TABLET PO SCH (08:28)
[2020-11-03] MEDS: MULTIVITAMINS WITH MINERALS, THERAPEUTIC TABLET PO SCH (08:28)
[2020-11-03] MEDS: THIAMINE 100 MG TABLET PO SCH ×2 (08:28→16:16)
[2020-11-03] MEDS: SERTRALINE HCL 50 MG TABLET PO SCH (08:28)
[2020-11-03] MEDS: OMEGA-3/DHA/EPA/FISH OIL 1,000 MG CAPSULE PO SCH (08:29)
[2020-11-03 08:42] VITALS: BP 131/91
[2020-11-03 16:00] VITALS: BP 148/74
[2020-11-03] MEDS ORDERED: QUEtiapine FUMARATE 100 MG TABLET PO PRN (18:30)
[2020-11-03] MEDS ORDERED: QUEtiapine FUMARATE 200 MG TABLET PO ONE (18:30)
[2020-11-03] MEDS: MELATONIN 5 MG TABLET PO SCH (21:00)
[2020-11-03] MEDS ORDERED: QUEtiapine FUMARATE 200 MG TABLET PO SCH (21:00)
[2020-11-04 07:56] LABS: ANION GAP 13 mmol/L (8-16); CALCIUM, TOTAL 10.1 mg/dL (8.8-10.5); CARBON DIOXIDE 28 mmol/L (22-29); CHLORIDE 100 mmol/L (98-107); CREATININE 0.93 mg/dL (0.60-1.30); GLOMERULAR FILTR. RATE CALC > 60 mL/min (>60); GLUCOSE,RANDOM 95 mg/dL (70-110); POTASSIUM 3.9 mmol/L (3.5-5.1); SODIUM SERUM 141 mmol/L (136-145); UREA NITROGEN, BLOOD 8 mg/dL (7-18)
[2020-11-04] MEDS: THIAMINE 100 MG TABLET PO SCH ×2 (08:27→16:18)
[2020-11-04] MEDS: SERTRALINE HCL 50 MG TABLET PO SCH (08:27)
[2020-11-04] MEDS: FOLIC ACID 1 MG TABLET PO SCH (08:27)
[2020-11-04] MEDS: OMEGA-3/DHA/EPA/FISH OIL 1,000 MG CAPSULE PO SCH (08:27)
[2020-11-04] MEDS: MULTIVITAMINS WITH MINERALS, THERAPEUTIC TABLET PO SCH (08:27)
[2020-11-04] MEDS: NALTREXONE HCL 50 MG TABLET PO SCH (08:28)
[2020-11-04 16:00] VITALS: BP 149/70
[2020-11-04] MEDS: LORazepam 2 MG TABLET PO PRN (16:18)
[2020-11-04] MEDS ORDERED: SERT50TA12 PO (18:38)
[2020-11-04] MEDS ORDERED: OMEG-135 PO (18:38)
[2020-11-04] MEDS ORDERED: QUET200T29 PO (18:38)
[2020-11-04] MEDS ORDERED: MELA5TAB3 PO (18:38)
[2020-11-04] MEDS ORDERED: NALT50TA PO (18:38)
[2020-11-04] MEDS: MELATONIN 5 MG TABLET PO SCH (20:32)
[2020-11-04] MEDS ORDERED: QUEtiapine FUMARATE 200 MG TABLET PO SCH (21:00)
[2020-11-05] MEDS: LORazepam 2 MG TABLET PO PRN (04:07)
[2020-11-05 08:49] VITALS: BP 132/80
[2020-11-05] MEDS: THIAMINE 100 MG TABLET PO SCH ×2 (08:52→16:00)
[2020-11-05] MEDS: OMEGA-3/DHA/EPA/FISH OIL 1,000 MG CAPSULE PO SCH (08:52)
[2020-11-05] MEDS: NALTREXONE HCL 50 MG TABLET PO SCH (08:52)
[2020-11-05] MEDS: FOLIC ACID 1 MG TABLET PO SCH (08:52)
[2020-11-05] MEDS: SERTRALINE HCL 50 MG TABLET PO SCH (08:53)
[2020-11-05] MEDS: MULTIVITAMINS WITH MINERALS, THERAPEUTIC TABLET PO SCH (08:53)
== END 2020-11-05 16:10 | disposition home or self-care (01) | DRG 750 ==
LOC: EMS 15:14 → 3EI 21:57
PROVIDERS: ADMIT Psychiatry & Neurology Psychiatry; ATTEND Psychiatry & Neurology Psychiatry
DX: F20.9 Schizophrenia, unspecified (principal); F29 Unspecified psychosis not due to a substance or known physiological condition; F32.9 Major depressive disorder, single episode, unspecified; D64.9 Anemia, unspecified; E87.6 Hypokalemia; F17.210 Nicotine dependence, cigarettes, uncomplicated; R45.851 Suicidal ideations; Z20.822 Contact with and (suspected) exposure to COVID-19; Z59.0 Homelessness; Z65.3 Problems related to other legal circumstances; Z91.19 Patient's noncompliance with other medical treatment and regimen; Z59.9 Problem related to housing and economic circumstances, unspecified; Z91.5 Personal history of self-harm; Z79.899 Other long term (current) drug therapy; Z23 Encounter for immunization
CPT/HCPCS: 80074; 87426; A9575; G0480

== ENCOUNTER 2021-07-14 16:22 | Inpatient (IN) | payer MEDICAID ==
[~2021-07-14] VITALS: Ht 167.6 cm; Wt 90.3 kg
[~2021-07-14 16:22] MED LIST changes: +MELA5TAB40 PO; -OLAN5TAB30 PO; +OMEG-135 PO; +QUET200T30 PO; +SERT-439 PO; -SERT50TA12 PO
[2021-07-14] MEDS ORDERED: ZOLPIDEM TARTRATE 10 MG TABLET PO PRN (20:30)
[2021-07-14] MEDS ORDERED: HALOPERIDOL 5 MG TABLET PO PRN (20:30)
[2021-07-15 07:11] LABS: BASOPHILS % (AUTO) 0.7 % (0.0-2.0); EOSINOPHILS % (AUTO) 7.3 % (1.0-6.0); HEMATOCRIT 34.4 % (36-46); HEMOGLOBIN 11.1 g/dL (12.0-16.0); LYMPHOCYTES # (AUTO) 2.5 K/uL (1.0-4.8); LYMPHOCYTES % (AUTO) 39.3 % (22.0-44.0); MEAN CORPUSCULAR HEMOGLOBIN 27.1 pg (26.0-34.0); MEAN CORPUSCULAR HGB CONC 32.2 G/dL (31.0-37.0); MEAN CORPUSCULAR VOLUME 84 fL (80-100); MONOCYTES # (AUTO) 0.5 K/uL (0.1-1.0); MONOCYTES % (AUTO) 7.7 % (2.0-9.0); NEUTROPHILS # (AUTO) 2.9 K/uL (1.8-7.7); PLATELET COUNT (AUTO) 304 K/uL (150-450); RED BLOOD CELL COUNT(AUTO) 4.08 MIL/uL (4.00-5.20); RED CELL DISTRIBUTION WIDTH 16.1 % (11.5-14.5)
[2021-07-15 07:23] LABS: HEMOGLOBIN A1C 5.6 % (3.8-5.6)
[2021-07-15 07:25] LABS: ALANINE AMINOTRANSFERASE 24 U/L (12-78); ALKALINE PHOSPHATASE 90 U/L (46-116); ANION GAP 10 mmol/L (8-16); ASPARTATE AMINOTRANSFERASE 24 U/L (15-37); BILIRUBIN,TOTAL 0.2 mg/dL (0.1-1.0); CALCIUM, TOTAL 8.6 mg/dL (8.8-10.5); CARBON DIOXIDE 22 mmol/L (22-29); CHLORIDE 105 mmol/L (98-107); CHOL/HDL RATIO 3.2 (3.9-5.7); CHOLESTEROL 180 mg/dL (131-200); CREATININE 0.64 mg/dL (0.60-1.30); FREE T4 (FREE THYROXINE) 0.72 ng/dL (0.76-1.46); GLOMERULAR FILTR. RATE CALC > 60 mL/min (>60); GLUCOSE,RANDOM 99 mg/dL (70-110); HCG,QUANTITATIVE < 1 mIU/mL (0-6); HDL CHOLESTEROL 56 mg/dL (40-60); LDL CHOL (CALC.) 100 mg/dL (0-130); POTASSIUM 3.9 mmol/L (3.5-5.1); SODIUM SERUM 137 mmol/L (136-145); THYROID STIMULATING HORMONE 0.72 uIU/mL (0.36-3.74); TOTAL PROTEIN, SERUM 7.3 g/dL (6.4-8.2); TRIGLYCERIDES 120 mg/dL (15-150); UREA NITROGEN, BLOOD 8 mg/dL (7-18)
[2021-07-15 08:37] VITALS: BP 118/71
[2021-07-15] MEDS: RisperiDONE 2 MG TABLET PO SCH ×2 (10:30→20:03)
[2021-07-15] MEDS: SERTRALINE HCL 50 MG TABLET PO SCH (10:30)
[2021-07-15] MEDS ORDERED: ALBUTEROL SULFATE HFA 90 MCG/PUFF 8 GM INHALER IH PRN (11:30)
[2021-07-15] MEDS ORDERED: GuaiFENesin/D-METHORPHAN [SUGAR-FREE] 200-20MG/10 ML SYRUP UDCUP PO PRN (11:30)
[2021-07-15] MEDS ORDERED: NICOTINE 14 MG/24 HOUR PATCH TD PRN (11:30)
[2021-07-15] MEDS ORDERED: DOCUSATE SODIUM 100 MG CAPSULE PO PRN (11:30)
[2021-07-15] MEDS ORDERED: ONDANSETRON HCL 4 MG TABLET PO PRN (11:30)
[2021-07-15] MEDS ORDERED: PETROLATUM,WHITE 28 GM JELLY TP PRN (11:30)
[2021-07-15] MEDS ORDERED: MAG HYDROX/AL HYDROX/SIMETH ES 30 ML SUSPENSION UDCUP PO PRN (11:30)
[2021-07-15] MEDS ORDERED: MAGNESIUM HYDROXIDE SUSPENSION 30 ML UDCUP PO PRN (11:30)
[2021-07-15] MEDS ORDERED: LOPERAMIDE HCL 2 MG CAPSULE PO PRN (11:30)
[2021-07-15] MEDS ORDERED: IBUPROFEN 400 MG TABLET PO PRN (11:30)
[2021-07-15] MEDS ORDERED: ACETAMINOPHEN 325 MG TABLET PO PRN (11:30)
[2021-07-15] MEDS ORDERED: CloNIDine HCL 0.1 MG TABLET PO PRN (11:30)
[2021-07-15 16:13] VITALS: BP 113/64
[2021-07-15] MEDS: MELATONIN 5 MG TABLET PO SCH (20:03)
[2021-07-16 00:12] VITALS: BP 108/76
[2021-07-16 08:47] VITALS: BP 112/74
[2021-07-16] MEDS: RisperiDONE 2 MG TABLET PO SCH ×2 (09:55→20:39)
[2021-07-16] MEDS: SERTRALINE HCL 50 MG TABLET PO SCH (09:55)
[2021-07-16 16:25] VITALS: BP 122/75
[2021-07-16] MEDS: MELATONIN 5 MG TABLET PO SCH (20:39)
[2021-07-17 02:29] VITALS: BP 115/76
[2021-07-17 08:35] VITALS: BP 119/63
[2021-07-17] MEDS ORDERED: PALIPERIDONE PALMITATE 234 MG/1.5 ML SYRINGE IM ONE (09:00)
[2021-07-17] MEDS: SERTRALINE HCL 50 MG TABLET PO SCH (09:05)
[2021-07-17] MEDS: RisperiDONE 2 MG TABLET PO SCH ×2 (09:05→20:14)
[2021-07-17 16:21] VITALS: BP 112/78
[2021-07-17] MEDS: LORazepam 2 MG TABLET PO PRN (16:57)
[2021-07-17] MEDS: MELATONIN 5 MG TABLET PO SCH (20:13)
[2021-07-18 01:20] VITALS: BP 104/70
[2021-07-18 08:50] VITALS: BP 113/64
[2021-07-18] MEDS: RisperiDONE 2 MG TABLET PO SCH ×2 (09:41→20:02)
[2021-07-18] MEDS: SERTRALINE HCL 50 MG TABLET PO SCH (09:41)
[2021-07-18] MEDS: LORazepam 2 MG TABLET PO PRN ×2 (09:44→17:10)
[2021-07-18 16:07] VITALS: BP 132/77
[2021-07-18] MEDS: MELATONIN 5 MG TABLET PO SCH (20:02)
[2021-07-19 00:31] VITALS: BP 126/71
[2021-07-19] MEDS: SERTRALINE HCL 50 MG TABLET PO SCH (08:36)
[2021-07-19] MEDS: RisperiDONE 2 MG TABLET PO SCH ×2 (08:36→20:05)
[2021-07-19 08:45] VITALS: BP 116/69
[2021-07-19 16:11] VITALS: BP 127/71
[2021-07-19] MEDS: MELATONIN 5 MG TABLET PO SCH (20:05)
[2021-07-19] MEDS: LORazepam 2 MG TABLET PO PRN (20:12)
[2021-07-20 00:16] VITALS: BP 112/66
[2021-07-20] MEDS: RisperiDONE 2 MG TABLET PO SCH ×2 (08:24→20:08)
[2021-07-20] MEDS: LORazepam 2 MG TABLET PO PRN (08:24)
[2021-07-20] MEDS: SERTRALINE HCL 50 MG TABLET PO SCH (08:25)
[2021-07-20 08:35] VITALS: BP 118/72
[2021-07-20 16:24] VITALS: BP 131/70
[2021-07-20] MEDS: MELATONIN 5 MG TABLET PO SCH (20:08)
[2021-07-21 00:46] VITALS: BP 114/74
[2021-07-21] MEDS: SERTRALINE HCL 50 MG TABLET PO SCH (07:59)
[2021-07-21] MEDS: RisperiDONE 2 MG TABLET PO SCH (07:59)
[2021-07-21 08:16] VITALS: BP 112/55
[2021-07-21] MEDS ORDERED: PALIPERIDONE PALMITATE 156 MG/ML SYRINGE IM ONE (09:00)
[2021-07-21] MEDS ORDERED: OMEG-135 PO (09:31)
[2021-07-21] MEDS ORDERED: PALI234D IM (09:31)
[2021-07-21] MEDS ORDERED: SERT-439 PO (09:31)
[2021-07-21] MEDS ORDERED: MELA5TAB40 PO (09:31)
== END 2021-07-21 14:13 | disposition home or self-care (01) | DRG 753 ==
LOC: B3A 20:25
DX: F31.5 Bipolar disorder, current episode depressed, severe, with psychotic features (principal); E83.51 Hypocalcemia; R45.851 Suicidal ideations; D64.9 Anemia, unspecified; G47.00 Insomnia, unspecified; F14.10 Cocaine abuse, uncomplicated; Z59.0 Homelessness; Z79.899 Other long term (current) drug therapy
CPT/HCPCS: 80053; 80061; 83036; 84439; 84443; 84702; 85025; Q9967

== ENCOUNTER 2021-08-22 11:07 | Inpatient (IN) | payer MEDICAID ==
[~2021-08-22] VITALS: Ht 167.6 cm; Wt 92.0 kg
[~2021-08-22 11:07] MED LIST changes: -NALT50TA PO; +PALI234D IM; -QUET200T30 PO
[2021-08-22] MEDS ORDERED: ZOLPIDEM TARTRATE 10 MG TABLET PO PRN ×2 (11:45→14:15)
[2021-08-22] MEDS ORDERED: LORazepam 2 MG TABLET PO PRN (11:45)
[2021-08-22] MEDS ORDERED: OLANZapine 5 MG RAPDIS TABLET PO PRN ×2 (11:45→14:15)
[2021-08-22 12:13] VITALS: BP 126/70
[2021-08-22 13:25] LABS: GLUCOMETER DEV NAME(LOC) POC.BV
[2021-08-22] MEDS ORDERED: MAGNESIUM HYDROXIDE SUSPENSION 30 ML UDCUP PO PRN ×2 (14:15)
[2021-08-22] MEDS ORDERED: PALIPERIDONE PALMITATE 234 MG/1.5 ML SYRINGE IM ONE (14:15)
[2021-08-22] MEDS ORDERED: PROMETHAZINE HCL 25 MG TABLET PO PRN (14:15)
[2021-08-22] MEDS ORDERED: HydrOXYzine PAMOATE 50 MG CAPSULE PO PRN (14:15)
[2021-08-22] MEDS ORDERED: LOPERAMIDE HCL 2 MG CAPSULE PO PRN ×2 (14:15)
[2021-08-22] MEDS ORDERED: TUBERCULIN, PURIFIED PROTEIN DERIVATIVE 5 TU/0.1 ML SYRINGE ID ONE (14:15)
[2021-08-22] MEDS ORDERED: MAG HYDROX/AL HYDROX/SIMETH ES 30 ML SUSPENSION UDCUP PO PRN ×2 (14:15)
[2021-08-22] MEDS ORDERED: GuaiFENesin/D-METHORPHAN [SUGAR-FREE] 200-20MG/10 ML SYRUP UDCUP PO PRN (14:15)
[2021-08-22] MEDS ORDERED: LORazepam 1 MG TABLET PO PRN (14:15)
[2021-08-22] MEDS ORDERED: ACETAMINOPHEN 325 MG TABLET PO PRN ×2 (14:15)
[2021-08-22 16:06] VITALS: BP 115/73
[2021-08-22] MEDS: THIAMINE 100 MG TABLET PO SCH (17:03)
[2021-08-22] MEDS ORDERED: OLANZapine 5 MG RAPDIS TABLET PO SCH (21:00)
[2021-08-22] MEDS: MELATONIN 5 MG TABLET PO SCH (21:14)
[2021-08-23 00:10] VITALS: BP 130/84
[2021-08-23 07:20] LABS: BASOPHILS % (AUTO) 0.4 % (0.0-2.0); HEMATOCRIT 34.3 % (36-46); HEMOGLOBIN 11.1 g/dL (12.0-16.0); LYMPHOCYTES # (AUTO) 2.3 K/uL (1.0-4.8); LYMPHOCYTES % (AUTO) 37.5 % (22.0-44.0); MEAN CORPUSCULAR HEMOGLOBIN 26.7 pg (26.0-34.0); MEAN CORPUSCULAR HGB CONC 32.4 G/dL (31.0-37.0); MEAN CORPUSCULAR VOLUME 82 fL (80-100); MONOCYTES # (AUTO) 0.6 K/uL (0.1-1.0); MONOCYTES % (AUTO) 10.5 % (2.0-9.0); NEUTROPHILS # (AUTO) 2.9 K/uL (1.8-7.7); NEUTROPHILS % (AUTO) 48.6 % (40.0-70.0); PLATELET COUNT (AUTO) 288 K/uL (150-450); RED BLOOD CELL COUNT(AUTO) 4.18 MIL/uL (4.00-5.20); RED CELL DISTRIBUTION WIDTH 15.2 % (11.5-14.5)
[2021-08-23 07:32] LABS: HEMOGLOBIN A1C 5.8 % (3.8-5.6)
[2021-08-23 07:42] LABS: ALANINE AMINOTRANSFERASE 16 U/L (12-78); ALBUMIN 3.2 g/dL (3.4-5.0); ALKALINE PHOSPHATASE 82 U/L (46-116); ANION GAP 9 mmol/L (8-16); ASPARTATE AMINOTRANSFERASE 15 U/L (15-37); BILIRUBIN,TOTAL 0.2 mg/dL (0.1-1.0); CALCIUM, TOTAL 9.2 mg/dL (8.8-10.5); CARBON DIOXIDE 25 mmol/L (22-29); CHLORIDE 104 mmol/L (98-107); CHOL/HDL RATIO 3.8 (3.9-5.7); CHOLESTEROL 241 mg/dL (131-200); CREATININE 0.56 mg/dL (0.60-1.30); FREE T4 (FREE THYROXINE) 0.71 ng/dL (0.76-1.46); GLOMERULAR FILTR. RATE CALC > 60 mL/min (>60); GLUCOSE,RANDOM 86 mg/dL (70-110); HCG,QUANTITATIVE < 1 mIU/mL (0-6); HDL CHOLESTEROL 64 mg/dL (40-60); LDL CHOL (CALC.) 160 mg/dL (0-130); POTASSIUM 4.3 mmol/L (3.5-5.1); SODIUM SERUM 138 mmol/L (136-145); THYROID STIMULATING HORMONE 1.85 uIU/mL (0.36-3.74); TOTAL PROTEIN, SERUM 7.6 g/dL (6.4-8.2); TRIGLYCERIDES 83 mg/dL (15-150); UREA NITROGEN, BLOOD 8 mg/dL (7-18)
[2021-08-23 08:10] VITALS: BP 123/77
[2021-08-23] MEDS: FOLIC ACID 1 MG TABLET PO SCH (09:12)
[2021-08-23] MEDS: MULTIVITAMINS WITH MINERALS, THERAPEUTIC TABLET PO SCH (09:12)
[2021-08-23] MEDS: THIAMINE 100 MG TABLET PO SCH ×2 (09:12→16:28)
[2021-08-23] MEDS: OMEGA-3/DHA/EPA/FISH OIL 1,000 MG CAPSULE PO SCH (09:12)
[2021-08-23] MEDS: NALTREXONE HCL 50 MG TABLET PO SCH (09:13)
[2021-08-23 16:06] VITALS: BP 106/64
[2021-08-23] MEDS: MELATONIN 5 MG TABLET PO SCH (20:07)
[2021-08-23] MEDS: SERTRALINE HCL 50 MG TABLET PO SCH (20:08)
[2021-08-24 00:43] VITALS: BP 100/60
[2021-08-24 08:04] VITALS: BP 111/63
[2021-08-24] MEDS: NALTREXONE HCL 50 MG TABLET PO SCH (08:40)
[2021-08-24] MEDS: THIAMINE 100 MG TABLET PO SCH ×2 (08:40→16:34)
[2021-08-24] MEDS: FOLIC ACID 1 MG TABLET PO SCH (08:40)
[2021-08-24] MEDS: OMEGA-3/DHA/EPA/FISH OIL 1,000 MG CAPSULE PO SCH (08:40)
[2021-08-24] MEDS: MULTIVITAMINS WITH MINERALS, THERAPEUTIC TABLET PO SCH (08:40)
[2021-08-24 16:09] VITALS: BP 109/65
[2021-08-24] MEDS: MELATONIN 5 MG TABLET PO SCH (20:38)
[2021-08-24] MEDS: SERTRALINE HCL 50 MG TABLET PO SCH (20:38)
[2021-08-25 00:02] VITALS: BP 108/61
[2021-08-25 08:14] VITALS: BP 116/70
[2021-08-25] MEDS: NALTREXONE HCL 50 MG TABLET PO SCH (09:24)
[2021-08-25] MEDS: OMEGA-3/DHA/EPA/FISH OIL 1,000 MG CAPSULE PO SCH (09:24)
[2021-08-25] MEDS: THIAMINE 100 MG TABLET PO SCH ×2 (09:24→16:34)
[2021-08-25] MEDS: MULTIVITAMINS WITH MINERALS, THERAPEUTIC TABLET PO SCH (09:24)
[2021-08-25] MEDS: FOLIC ACID 1 MG TABLET PO SCH (09:24)
[2021-08-25] MEDS ORDERED: INFLUENZA VIRUS VACCINE QVS 2021-22 (6MO+)/PF 60 MCG/0.5 ML SYRINGE IM. ONE (13:15)
[2021-08-25] MEDS ORDERED: PALI117D IM (15:20)
[2021-08-25] MEDS ORDERED: MELA5TAB40 PO (15:20)
[2021-08-25] MEDS ORDERED: NALT50TA PO (15:20)
[2021-08-25] MEDS ORDERED: OMEG-135 PO (15:20)
[2021-08-25] MEDS ORDERED: SERT-439 PO (15:20)
[2021-08-25 16:06] VITALS: BP 112/69
[2021-08-25] MEDS: MELATONIN 5 MG TABLET PO SCH (20:45)
[2021-08-25] MEDS: SERTRALINE HCL 50 MG TABLET PO SCH (20:45)
[2021-08-26 00:24] VITALS: BP 116/73
[2021-08-26 08:13] VITALS: BP 118/73
[2021-08-26] MEDS: NALTREXONE HCL 50 MG TABLET PO SCH (08:58)
[2021-08-26] MEDS: MULTIVITAMINS WITH MINERALS, THERAPEUTIC TABLET PO SCH (08:58)
[2021-08-26] MEDS: FOLIC ACID 1 MG TABLET PO SCH (08:58)
[2021-08-26] MEDS: THIAMINE 100 MG TABLET PO SCH ×2 (08:58→16:02)
[2021-08-26] MEDS: OMEGA-3/DHA/EPA/FISH OIL 1,000 MG CAPSULE PO SCH (08:58)
[2021-08-26] MEDS ORDERED: PALIPERIDONE PALMITATE 156 MG/ML SYRINGE IM ONE (09:00)
== END 2021-08-26 15:30 | disposition home or self-care (01) | DRG 750 ==
LOC: B2S 12:54
PROVIDERS: ADMIT Psychiatry & Neurology Psychiatry; ATTEND Psychiatry & Neurology Psychiatry
DX: F20.0 Paranoid schizophrenia (principal); E83.51 Hypocalcemia; D64.9 Anemia, unspecified; Z20.822 Contact with and (suspected) exposure to COVID-19; F12.90 Cannabis use, unspecified, uncomplicated; F41.8 Other specified anxiety disorders; J44.9 Chronic obstructive pulmonary disease, unspecified; Z55.9 Problems related to education and literacy, unspecified; Z59.00 Homelessness unspecified; Z63.9 Problem related to primary support group, unspecified; Z65.3 Problems related to other legal circumstances; Z91.15 Patient's noncompliance with renal dialysis; Z91.19 Patient's noncompliance with other medical treatment and regimen
CPT/HCPCS: 80053; 80061; 83036; 84439; 84443; 84702; 85025; 86592; Q9967